=== PATIENT | female | born 1990 | race Caucasian/White ===

== ENCOUNTER 2018-11-16 05:45 | Inpatient (IN) | payer BC ==
[~2018-11-16] VITALS: Ht 162.6 cm; Wt 72.6 kg
[2018-11-16] MEDS ORDERED: LR 1,000 ML IV ONE (06:11)
[2018-11-16] MEDS ORDERED: CLINDAMYCIN 600 mg/50mL D5W 50 ML IV ONE (06:15)
[2018-11-16] MEDS ORDERED: CEFAZOLIN 2 GM IVPB PREMIX 50 ML IV ONE (06:15)
[2018-11-16 06:40] LABS: BASOPHILS # (AUTO) 0.1 K/uL (0.0-0.2); BASOPHILS % (AUTO) 0.6 % (0.0-2.0); EOSINOPHILS % (AUTO) 0.4 % (0.0-4.0); HEMOGLOBIN 13.8 g/dL (12.0-16.0); LYMPHOCYTES # (AUTO) 1.7 K/uL (1.0-5.5); LYMPHOCYTES % (AUTO) 19.2 % (20.5-51.5); MEAN CORPUSCULAR HEMOGLOBIN 34 pg (27-31); MEAN CORPUSCULAR HGB CONC 35 % (32-36); MEAN CORPUSCULAR VOLUME 99 fL (79.0-98.0); MONOCYTES # (AUTO) 0.8 K/uL (0.0-1.0); MONOCYTES % (AUTO) 8.9 % (1.7-9.3); NEUTROPHILS # (AUTO) 6.4 K/uL (1.8-7.7); NEUTROPHILS % (AUTO) 70.9 % (40.0-70.0); PLATELET COUNT (AUTO) 131 K/uL (130-430); RED BLOOD CELL COUNT(AUTO) 4.06 MIL/uL (4.2-6.2); RED CELL DISTRIBUTION WIDTH 13.6 % (9.0-15.0)
[2018-11-16 06:45] LABS: BILIRUBIN,URINE NEGATIVE (NEGATIVE); BLOOD, URINE NEGATIVE (NEGATIVE); CLARITY/URINE SL HAZY (CLEAR); COLOR,URINE YELLOW (YELLOW); GLUCOSE,URINE NEGATIVE (NEGATIVE); KETONES,URINE NEGATIVE (NEGATIVE); LEUKOCYTE ESTERASE ,URINE 3+ (NEGATIVE); NITRITE, URINE NEGATIVE (NEGATIVE); PH,URINE 6.5 (5.0-8.0); PROTEIN URINE NEGATIVE (NEGATIVE); UROBILINOGEN,URINE 0.2 (0.2-1.0)
[2018-11-16 07:03] VITALS: BP_SYST 120
[2018-11-16 07:09] LABS: BACTERIA,URINE MODERATE /HPF (None Seen); RBC,URINE 0-3 /HPF (0-3)
[2018-11-16 07:10] LABS: MUCUS,URINE None Seen /LPF (None Seen)
[2018-11-16] MEDS ORDERED: BUPIVACAINE /DEX PF 0.75% SPINAL 2 ML AMP INJ ONE (08:35)
[2018-11-16] MEDS ORDERED: EPINEPHrine 1 MG/ML AMP IM ONE (08:35)
[2018-11-16] MEDS ORDERED: ONDANSETRON HCL 4 MG/2 ML VIAL IVP ONE (08:35)
[2018-11-16] MEDS ORDERED: OXYTOCIN/0.9 % SODIUM CHLORIDE 20 UNITS/1,000 ML BAG IV ONE (08:35)
[2018-11-16] MEDS ORDERED: MORPHINE SULFATE 10MG/10ML PF AMP EP ONE (08:35)
[2018-11-16] MEDS ORDERED: LR 1,000 ML IV.SOLN IV ONE (08:35)
[2018-11-16] MEDS ORDERED: NS IRRIG SOLN 1000 ML IR ONE (08:35)
[2018-11-16] MEDS ORDERED: ePHEDrine sulfate 50 MG/ML VIAL IM ONE (08:35)
[2018-11-16] MEDS ORDERED: OXYTOCIN 10 UNIT/ML VIAL IV ONE (08:35)
[2018-11-16 09:30] VITALS: BP_SYST 128
[2018-11-16] MEDS ORDERED: LR 1,000 ML IV SCH ×3 (09:34→16:28)
[2018-11-16] MEDS ORDERED: NALOXONE HCL 1 MG in NACL 0.9% 1,000 ML IV PRN ×4 (09:34)
[2018-11-16] MEDS ORDERED: ONDANSETRON HCL 4 MG/2 ML VIAL IVP PRN (09:45)
[2018-11-16] MEDS ORDERED: NALOXONE HCL 0.4 MG/ML AMP (NARCAN) IVP PRN ×3 (09:45)
[2018-11-16] MEDS ORDERED: HYDROmorphone 1 MG INJ. 1 MG/ML AMPUL IVP PRN (09:45)
[2018-11-16] MEDS ORDERED: MEPERIDINE HCL/PF 25 MG/ML DISP.SYRIN IVP PRN ×2 (09:45)
[2018-11-16] MEDS ORDERED: DIPHENHYDRAMINE INJ 50 MG/ML VIAL IVP PRN (09:45)
[2018-11-16] MEDS ORDERED: MORPHINE SULFATE 10MG/10ML PF AMP SP SCH (09:45)
[2018-11-16] MEDS ORDERED: DIPHENHYDRAMINE HCL 50 MG CAPSULE PO PRN (09:45)
[2018-11-16] MEDS ORDERED: HYDROmorphone 2 MG/ML VIAL IVP PRN ×2 (09:45)
[2018-11-16] MEDS ORDERED: DIPHENHYDRAMINE INJ 50 MG/ML VIAL ONE (09:48)
[2018-11-16] MEDS ORDERED: ONDANSETRON HCL 4 MG/2 ML VIAL ONE (09:49)
[2018-11-16] MEDS ORDERED: HYDROcodone/ACETAMIN 5-325 MG TAB (NORCO/ VICODIN) PO PRN ×2 (16:15→16:30)
[2018-11-16] MEDS ORDERED: OXYTOCIN/0.9 % SODIUM CHLORIDE 1,000 ML IV ONE ×2 (16:15→16:28)
[2018-11-16] MEDS ORDERED: OXYCODONE/ACETAMINOPHEN 5-325 TABLET PO PRN ×4 (16:15→16:30)
[2018-11-16] MEDS ORDERED: RHO(D) IMMUNE GLOBULIN/MALTOSE 1500 UNITS/1.3 ML (WINHRO) IM PRN (16:30)
[2018-11-16] MEDS ORDERED: ANUSOL 1 EA SUPP.RECT (PREPARATION H) RC PRN (16:30)
[2018-11-16] MEDS ORDERED: LANOLIN 7 GM OINT. TP PRN (16:30)
[2018-11-16] MEDS ORDERED: MEASLES,MUMPS&RUBELLA VACC/PF 12500 UNIT/0.5 ML VIAL SUBQ PRN (16:30)
[2018-11-16] MEDS ORDERED: DIPH-TET-PERTUS Vaccine 0.5 ML VIAL (ADACEL) I.M. PRN (16:30)
[2018-11-16] MEDS ORDERED: BISACODYL 10 MG/SUPPOSITORY RC PRN (16:30)
[2018-11-16] MEDS ORDERED: SENNOSIDES/DOCUSATE SODIUM 1 TAB TABLET(SENOKOT-S) PO PRN (16:30)
[2018-11-16] MEDS ORDERED: KETOROLAC TROMETHAMINE 30 MG VIAL ONE (16:53)
[2018-11-16] MEDS: KETOROLAC TROMETHAMINE 30 MG VIAL IVP SCH ×2 (17:02→23:24)
[2018-11-16] MEDS ORDERED: CEFAZOLIN 1 GM IVPB PREMIX 50 ML IV SCH (18:00)
[2018-11-16] MEDS ORDERED: TEMAZEPAM 15 MG CAPSULE PO PRN (21:00)
[2018-11-16] MEDS: CEFAZOLIN 1 GM IVPB PREMIX 50 ML IV SCH (23:55)
[2018-11-17] MEDS: CEFAZOLIN 1 GM IVPB PREMIX 50 ML IV SCH (06:00)
[2018-11-17] MEDS: KETOROLAC TROMETHAMINE 30 MG VIAL IVP SCH (06:10)
[2018-11-17 06:26] LABS: BASOPHILS % (AUTO) 0.3 % (0.0-2.0); EOSINOPHILS % (AUTO) 0.1 % (0.0-4.0); HEMATOCRIT 36.9 % (36-48); HEMOGLOBIN 12.6 g/dL (12.0-16.0); LYMPHOCYTES # (AUTO) 1.1 K/uL (1.0-5.5); LYMPHOCYTES % (AUTO) 10.3 % (20.5-51.5); MEAN CORPUSCULAR HEMOGLOBIN 34 pg (27-31); MEAN CORPUSCULAR HGB CONC 34 % (32-36); MEAN CORPUSCULAR VOLUME 100 fL (79.0-98.0); MONOCYTES # (AUTO) 0.8 K/uL (0.0-1.0); MONOCYTES % (AUTO) 7.6 % (1.7-9.3); NEUTROPHILS # (AUTO) 8.8 K/uL (1.8-7.7); NEUTROPHILS % (AUTO) 81.7 % (40.0-70.0); PLATELET COUNT (AUTO) 118 K/uL (130-430); RED BLOOD CELL COUNT(AUTO) 3.71 MIL/uL (4.2-6.2); RED CELL DISTRIBUTION WIDTH 13.9 % (9.0-15.0); WHITE BLOOD COUNT (AUTO) 10.7 K/uL (4.8-10.8)
[2018-11-17] MEDS: IBUPROFEN 600 MG TABLET PO SCH (12:07)
[2018-11-17] MEDS: DOCUSATE SODIUM 100 MG CAPSULE PO PRN (19:58)
[2018-11-17] MEDS: SIMETHICONE 80 MG TAB.CHEW PO PRN (19:58)
[2018-11-18] MEDS: IBUPROFEN 600 MG TABLET PO SCH ×3 (06:00→12:12)
[2018-11-18] MEDS: SIMETHICONE 80 MG TAB.CHEW PO PRN (12:12)
[2018-11-18] MEDS: DOCUSATE SODIUM 100 MG CAPSULE PO PRN (12:12)
== END 2018-11-18 16:45 | disposition home or self-care (01) | DRG 788 ==
LOC: SPU 05:45
PROVIDERS: ADMIT Specialist; ATTEND Specialist
PROC: 10D00Z1 Extraction of Products of Conception, Low, Open Approach (ICD-10-PCS; principal; 2018-11-18)
DX: O32.8XX0 Maternal care for other malpresentation of fetus, not applicable or unspecified (principal); Z3A.39 39 weeks gestation of pregnancy; Z37.0 Single live birth
CPT/HCPCS: 36415; 81000-TC; 85025; 86592; 86886; 86900; 86901; 87086; J0171; J0690; J1200; J1885; J2274; J2310; J2405; J2590; J3490; J7030; J7120

== ENCOUNTER 2021-04-06 09:34 | Inpatient (IN) | payer BC, SELFPAY ==
[~2021-04-06] VITALS: Ht 165.1 cm; Wt 74.8 kg
[2021-04-08] MEDS ORDERED: CEFAZOLIN 2 GM IVPB PREMIX 50 ML IV ONE (07:00)
[2021-04-08] MEDS ORDERED: LR 1,000 ML IV ONE (07:00)
[2021-04-08 07:55] LABS: BILIRUBIN,URINE NEGATIVE (NEGATIVE); BLOOD, URINE 1+ (NEGATIVE); COLOR,URINE YELLOW (YELLOW); GLUCOSE,URINE NEGATIVE (NEGATIVE); KETONES,URINE NEGATIVE (NEGATIVE); LEUKOCYTE ESTERASE ,URINE 2+ (NEGATIVE); NITRITE, URINE NEGATIVE (NEGATIVE); PH,URINE 6.5 (5.0-8.0); PROTEIN URINE NEGATIVE (NEGATIVE); UROBILINOGEN,URINE 0.2 (0.2-1.0)
[2021-04-08 07:56] LABS: CLARITY/URINE HAZY (CLEAR)
[2021-04-08 07:59] LABS: WBC,URINE 50-80 /HPF (0-3)
[2021-04-08 08:00] LABS: BACTERIA,URINE MANY /HPF (None Seen); MUCUS,URINE 1+ /LPF (None Seen)
[2021-04-08 08:23] LABS: BASOPHILS % (AUTO) 0.2 % (0.0-2.0); EOSINOPHILS % (AUTO) 0.6 % (0.0-4.0); HEMATOCRIT 34.2 % (36-48); HEMOGLOBIN 11.7 g/dL (12.0-16.0); LYMPHOCYTES # (AUTO) 0.9 K/uL (1.0-5.5); LYMPHOCYTES % (AUTO) 15.1 % (20.5-51.5); MEAN CORPUSCULAR HEMOGLOBIN 32 pg (27-31); MEAN CORPUSCULAR HGB CONC 34 % (32-36); MEAN CORPUSCULAR VOLUME 92 fL (79.0-98.0); MONOCYTES # (AUTO) 0.7 K/uL (0.0-1.0); MONOCYTES % (AUTO) 10.6 % (1.7-9.3); NEUTROPHILS # (AUTO) 4.6 K/uL (1.8-7.7); NEUTROPHILS % (AUTO) 73.5 % (40.0-70.0); PLATELET COUNT (AUTO) 132 K/uL (130-430); RED CELL DISTRIBUTION WIDTH 13.1 % (9.0-15.0); WHITE BLOOD COUNT (AUTO) 6.2 K/uL (4.8-10.8)
[2021-04-08] MEDS ORDERED: MORPHINE SULFATE 10MG/10ML PF AMP EP ONE (10:08)
[2021-04-08] MEDS ORDERED: NS IRRIG SOLN 1000 ML IR ONE (10:08)
[2021-04-08] MEDS ORDERED: LR 1,000 ML IV.SOLN IV ONE (10:08)
[2021-04-08] MEDS ORDERED: BUPIVACAINE /PF 0.75% 10 ML VIAL INJ ONE (10:08)
[2021-04-08] MEDS ORDERED: ONDANSETRON HCL 4 MG/2 ML VIAL IVP ONE (10:08)
[2021-04-08] MEDS ORDERED: OXYTOCIN 10 UNIT/ML VIAL IV ONE (10:08)
[2021-04-08] MEDS ORDERED: MORPHINE SULFATE 10MG/10ML PF AMP SP SCH (10:45)
[2021-04-08] MEDS ORDERED: DIPHENHYDRAMINE INJ 50 MG/ML VIAL IM PRN (10:45)
[2021-04-08] MEDS ORDERED: KETOROLAC TROMETHAMINE 60 MG/2 ML VIAL IM PRN (10:45)
[2021-04-08] MEDS ORDERED: ONDANSETRON HCL 4 MG/2 ML VIAL IVP PRN (10:45)
[2021-04-08] MEDS ORDERED: NALOXONE HCL 0.4 MG/ML AMP (NARCAN) IVP PRN ×2 (10:45→11:15)
[2021-04-08] MEDS ORDERED: MEASLES,MUMPS&RUBELLA VACC/PF 12500 UNIT/0.5 ML VIAL SUBQ PRN (11:15)
[2021-04-08] MEDS ORDERED: DIPH-TET-PERTUS Vaccine 0.5 ML VIAL (ADACEL) I.M. PRN (11:15)
[2021-04-08] MEDS ORDERED: HYDROcodone/ACETAMIN 5-325 MG TAB (NORCO/ VICODIN) PO PRN (11:15)
[2021-04-08] MEDS ORDERED: SIMETHICONE 80 MG TAB.CHEW PO PRN (11:15)
[2021-04-08] MEDS ORDERED: RHO(D) IMMUNE GLOBULIN/MALTOSE 1500 UNITS/1.3 ML (WINHRO) IM PRN (11:15)
[2021-04-08] MEDS ORDERED: LR 1,000 ML IV SCH (11:15)
[2021-04-08] MEDS ORDERED: LANOLIN 7 GM OINT. TP PRN (11:15)
[2021-04-08] MEDS ORDERED: ANUSOL 1 EA SUPP.RECT (PREPARATION H) RC PRN (11:15)
[2021-04-08] MEDS ORDERED: OXYCODONE/ACETAMINOPHEN *10*mg/325 mg TABLET PO PRN (11:15)
[2021-04-08] MEDS ORDERED: OXYCODONE/ACETAMINOPHEN 5-325 TABLET PO PRN (11:15)
[2021-04-08] MEDS ORDERED: TEMAZEPAM 15 MG CAPSULE PO PRN (11:15)
[2021-04-08] MEDS ORDERED: OXYTOCIN 10 UNIT/ML VIAL ONE (11:47)
[2021-04-08] MEDS: OXYTOCIN/0.9 % SODIUM CHLORIDE 1,000 ML IV SCH (16:45)
[2021-04-08] MEDS: KETOROLAC TROMETHAMINE 30 MG VIAL IVP SCH (18:29)
[2021-04-08] MEDS: CEFAZOLIN 1 GM IVPB PREMIX 50 ML IV SCH (18:29)
[2021-04-08 19:56] VITALS: BP_SYST 111
[2021-04-08] MEDS ORDERED: SENNOSIDES/DOCUSATE SODIUM 1 TAB TABLET(SENOKOT-S) PO SCH (21:00)
[2021-04-08] MEDS ORDERED: BISACODYL 10 MG/SUPPOSITORY RC SCH (21:00)
[2021-04-09] MEDS: CEFAZOLIN 1 GM IVPB PREMIX 50 ML IV SCH ×2 (00:10→05:45)
[2021-04-09] MEDS: KETOROLAC TROMETHAMINE 30 MG VIAL IVP SCH ×3 (00:13→11:48)
[2021-04-09] MEDS: OXYTOCIN/0.9 % SODIUM CHLORIDE 1,000 ML IV SCH (02:04)
[2021-04-09 08:57] LABS: BASOPHILS % (AUTO) 0.1 % (0.0-2.0); EOSINOPHILS % (AUTO) 0.1 % (0.0-4.0); HEMATOCRIT 35.6 % (36-48); HEMOGLOBIN 12.2 g/dL (12.0-16.0); LYMPHOCYTES # (AUTO) 0.8 K/uL (1.0-5.5); LYMPHOCYTES % (AUTO) 10.1 % (20.5-51.5); MEAN CORPUSCULAR HEMOGLOBIN 32 pg (27-31); MEAN CORPUSCULAR HGB CONC 34 % (32-36); MEAN CORPUSCULAR VOLUME 93 fL (79.0-98.0); MONOCYTES # (AUTO) 0.7 K/uL (0.0-1.0); MONOCYTES % (AUTO) 9.2 % (1.7-9.3); NEUTROPHILS # (AUTO) 6.4 K/uL (1.8-7.7); NEUTROPHILS % (AUTO) 80.5 % (40.0-70.0); PLATELET COUNT (AUTO) 129 K/uL (130-430); RED BLOOD CELL COUNT(AUTO) 3.81 MIL/uL (4.2-6.2); RED CELL DISTRIBUTION WIDTH 13.6 % (9.0-15.0)
[2021-04-09] MEDS: DOCUSATE SODIUM 100 MG CAPSULE PO SCH (09:42)
[2021-04-09] MEDS: IBUPROFEN 600 MG TABLET PO SCH (18:20)
[2021-04-10] MEDS: IBUPROFEN 600 MG TABLET PO SCH ×3 (00:05→11:56)
[2021-04-10] MEDS: DOCUSATE SODIUM 100 MG CAPSULE PO SCH (08:28)
== END 2021-04-10 14:50 | disposition home or self-care (01) | DRG 787 ==
LOC: SMU 09:34 → UNDOADMIN 09:34 → SPU 04-08 06:20
PROVIDERS: ADMIT Specialist; ATTEND Specialist
PROC: 10D00Z1 Extraction of Products of Conception, Low, Open Approach (ICD-10-PCS; principal; 2021-04-08 10:08)
DX: O34.211 Maternal care for low transverse scar from previous cesarean delivery (principal); O44.03 Complete placenta previa NOS or without hemorrhage, third trimester; O69.1XX0 Labor and delivery complicated by cord around neck, with compression, not applicable or unspecified; Z20.822 Contact with and (suspected) exposure to COVID-19; O13.4 Gestational [pregnancy-induced] hypertension without significant proteinuria, complicating childbirth; Z3A.38 38 weeks gestation of pregnancy; Z37.0 Single live birth; Z86.16 Personal history of COVID-19
CPT/HCPCS: 36415; 81000; 85025; 86592; 86886; 86900; 86901; 87086; 94760; J0690; J1885; J2274; J2405; J2590; J3490; J7120